=== PATIENT | male | born 1965 | race Two or more races ===

== ENCOUNTER 2022-03-30 06:52 | Day surgery (SDC) | payer MEDICAID ==
[2022-03-24 14:58] LABS: BASOPHILS % (AUTO) 0.1 % (0-1); EOSINOPHILS # (AUTO) 0.1 X10'3 (0-0.9); EOSINOPHILS % (AUTO) 1.6 % (0-6); LYMPHOCYTES % (AUTO) 38.3 % (21-51); MEAN CORPUSCULAR HEMOGLOBIN 29.1 PG (27.0-31.0); MEAN CORPUSCULAR HGB CONC 32.5 g/dL (33.0-36.5); MEAN CORPUSCULAR VOLUME 89.5 FL (78-98); MEAN PLATELET VOLUME 6.7 FL (7.4-10.4); MONOCYTES # (AUTO) 0.5 X10'3 (0-0.9); MONOCYTES % (AUTO) 6.2 % (2-12); NEUTROPHILS # (AUTO) 4.2 X10'3 (1.8-7.7); NEUTROPHILS % (AUTO) 53.8 % (42-75); PRE OP HEMATOCRIT 43.5 % (42.0-52.0); PRE OP HEMOGLOBIN 14.1 g/dL (14.0-17.9); PRE OP PLATELET COUNT 266 X10'3 (140-440); RED BLOOD COUNT 4.85 X10'6 (4.70-6.10); RED CELL DISTRIBUTION WIDTH 13.7 % (11.5-14.5)
[2022-03-24 15:04] LABS: ALBUMIN 3.8 G/DL (3.4-5.0); ALKALINE PHOSPHATASE 107 IU/L (46-116); BLOOD UREA NITROGEN 14 MG/DL (7-18); BUN/CREATININE RATIO 10.2 (5.4-32.0); CALCIUM 8.5 MG/DL (8.5-10.1); CHLORIDE 103 MMOL/L (99-107); CREATININE 1.37 MG/DL (0.60-1.10); PRE OP ALT 42 U/L (30-65); PRE OP ANION GAP 6 (8-16); PRE OP AST 28 U/L (10-37); PRE OP BILIRUB, TOTAL 0.5 MG/DL (0.0-1.0); PRE OP GLUCOSE 106 MG/DL (70-104); PRE OP POTASSIUM 3.7 MMOL/L (3.4-5.1); PRE OP SODIUM 140 MMOL/L (135-145); TOTAL PROTEIN 7.8 G/DL (6.4-8.2); eGFR 53 ML/MIN
[~2022-03-30] VITALS: Ht 180.3 cm; Wt 101.2 kg
[2022-03-30] VITALS (20 sets, daily range): BP systolic 113–150; BP diastolic 76–86
[~2022-03-30 06:52] MED LIST: NO HOME MEDS; ceFAZolin inj. 2,000 MG in dextrose 5%-water 100 ML IV ONE; famotidine 20mg tablet PO ONE; ringers solution, lacted 1,000 ML IV SCH
[2022-03-30] MEDS ORDERED: LIDOcaine 1% 30ml preserv. free vial ONE (09:33)
[2022-03-30] MEDS ORDERED: BUPIVAcaine 0.5% inj/PF 30 ML ONE ×2 (09:33→10:05)
[2022-03-30] MEDS ORDERED: sevoflurane 250ml liquid IH ONE (09:41)
[2022-03-30] MEDS ORDERED: fentaNYL/PF 50MCG/1 ML 2ML syringe ONE (09:42)
[2022-03-30] MEDS ORDERED: midazolam 1 mg/ML 2ml injection ONE (09:42)
[2022-03-30] MEDS ORDERED: rocuronium 10mg/ml inj IV ONE (09:42)
[2022-03-30] MEDS ORDERED: propofol inj 20 ML IV ONE (09:42)
[2022-03-30] MEDS ORDERED: BUPIVACAINE liposomal/PF 13.3 MG/ML vial IM ONE (10:05)
[2022-03-30] MEDS ORDERED: BUPIVAcaine 0.5% inj/PF 30 ml vial IJ ONE (10:16)
[2022-03-30] MEDS ORDERED: dexamethasone sod phosphate 4mg/ml inj. ONE (10:19)
[2022-03-30] MEDS ORDERED: ringers solution, lacted 1,000 ML IV SCH (10:35)
[2022-03-30] MEDS ORDERED: morphine 2 MG/ML inj. syringe IV PRN (10:35)
[2022-03-30] MEDS ORDERED: proCHLORperazine 10 MG/2 ml inj IV PRN (10:35)
[2022-03-30] MEDS ORDERED: morphine 4 MG/ML inj SYRINge IV PRN (10:35)
[2022-03-30] MEDS ORDERED: meperidine/PF 25mg/ml syringe IV PRN ×3 (10:35)
[2022-03-30] MEDS ORDERED: ondansetron/PF 4mg/2ml inj IV PRN (10:35)
[2022-03-30] MEDS ORDERED: ondansetron/PF 4mg/2ml inj ONE (10:39)
[2022-03-30] MEDS ORDERED: oxyCODONE/APAP 5-325mg tablet PO PRN (10:50)
[2022-03-30] MEDS ORDERED: neostigmine methylsulfate 1 MG/ML 10ml vial ONE (10:51)
[2022-03-30] MEDS ORDERED: glycopyrrolate 0.2mg/ml inj ONE (10:51)
--- NOTE | 2022-03-30 11:02 | NUR ---
Received from OR via [facility], accompanied by Anesthesiologist DR JOINER and report given by Anesthesiologist AND NURSE CLINICIAN. PT VERY DROWSY, NO S/S OF DISTRESS/DISCOMFORT. ABDOMEN W/3 LAP SITES W/BAND AIDS CDI, ABDOMINAL BINDER ON AND IN PLACE. Addendum: 03/30/22 at 1125 by Nurys Hernandez RN Amended: Links added.
--- NOTE | 2022-03-30 13:18 | NUR ---
PT REMAINS DROWSY, DENIES PAIN, STATES IS NOT READY FOR ICE CHIPS OR WATER YET. Addendum: 03/30/22 at 1319 by Nurys Hernandez RN Amended: Links added.
--- NOTE | 2022-03-30 14:52 | NUR ---
PT AWAKE, UP AND ABLE TO AMBULATE SAFELY, STATES PAIN IS MINIMAL AND DECLINES PAIN MEDICATIONS. D/C INSTRUCTIONS GIVEN AND GONE OVER W/PT WHO VERBALIZED UNDERSTANDING. PT D/CD TO HOME VIA W/C TO [facility] W/O INCIDENT. Addendum: 03/30/22 at 1511 by Nurys Hernandez RN Amended: Links added.
== END 2022-03-30 14:52 | disposition home or self-care (01) ==
LOC: PAS 06:52
PROVIDERS: ATTEND Surgery
DX: K43.9 Ventral hernia without obstruction or gangrene (principal); M19.90 Unspecified osteoarthritis, unspecified site; E66.9 Obesity, unspecified; Z68.31 Body mass index [BMI] 31.0-31.9, adult; Z79.899 Other long term (current) drug therapy
CPT/HCPCS: 36415; 49591; 64488; 80053; 82948; 85025; 93005; C1781; C9290; J0690; J1100; J2250; J2405; J2704; J2710; J3010; J3490; J7030; J7060; J7120; S0020; Z7506; Z7508; Z7512; A4215; A4618